=== PATIENT | female | born 1985 | race Caucasian/White ===

== ENCOUNTER 2018-09-28 14:45 | Outpatient (CLI) | payer MEDICAID, OTHER ==
[~2018-09-28] VITALS: Ht 165.1 cm; Wt 98.9 kg
[2018-09-28 15:18] VITALS: Ht 165.1 cm; Wt 98.9 kg
[2018-09-28 15:19] VITALS: BP 116/71; PULSE 71; RESP 19
--- NOTE | 2018-09-28 17:53 | TRIAGE ---
OB Triage Datetime Report Generated by CPN: 09/28/2018 17:52 Datetime: 09/28/2018 17:08 Labor Evaluation Frequency: occas Monitor Mode: External Duration (sec)2399: 60-100 Quality: Mild Pattern: Normal: <= 5 Contractions in 10 Minutes Resting Tone [place]: Relaxed Heart Rate FHR Baseline Rate: 135 Monitor Mode: External US FHR Baseline Changes: No Baseline Change Variability: Moderate 6-25 bpm Accelerations: 15X15 Decelerations: None Category: Category I Datetime: 09/28/2018 16:52 Labor Evaluation Frequency: OCCAS Monitor Mode: External Duration (sec)2399: 60-100 Quality: Mild Pattern: Normal: <= 5 Contractions in 10 Minutes Resting Tone [place]: Relaxed Heart Rate FHR Baseline Rate: 135 Monitor Mode: External US FHR Baseline Changes: No Baseline Change Variability: Moderate 6-25 bpm Accelerations: 15X15 Decelerations: None Category: Category I Datetime: 09/28/2018 15:23 Assessment Type: Triage Maternal Assessment Level of Consciousness: Fully Conscious DTR's/Clonus: DTRs 2+; No Clonus Headache: Denies Blurred Vision: No Respiratory Effort: Unlabored; Regular Rhythm; Equal Expansion Breath Sounds, Left: Clear and Equal Breath Sounds, Right: Clear and Equal Nausea/Vomiting: Denies RUQ Epigastric Pain: Denies Lower Extremities Edema: None Degree: None Upper Extremities Edema: None Degree: None Facial Edema: None Fall Risk Assessment History of Falling: (0) No Secondary Diagnosis: (0) No Ambulatory Aid: (0) Bedrest/Nurse Assist IV Therapy: (0) No Gait: (0) Normal/Bedrest/Immobile Mental Status: (0) Oriented to Own Ability Fall Score: 0 Fall Risk Score Definition: No Risk: No action required Datetime: 09/28/2018 15:22 Time of Arrival: 09/28/2018 14:36 EGA: 38.0 Arrived By: Ambulatory Arrived From: Office Chief Complaint: leaking Movement: Present Contractions: Denies/Absent Rupture of Membranes: Denies Vaginal Bleeding: None Vaginal Discharge: Denies Recent Sexual Intercouse: Denies Abdominal Trauma: Not Applicable Patient Complaints: Other Time Provider Notified: 09/28/2018 17:02 Provider Notified: dr avelar Initial Plan: nst bpp efw ua and rom + Labor Evaluation Frequency: occas Monitor Mode: External Duration (sec)2399: 60-80 Quality: Mild Pattern: Normal: <= 5 Contractions in 10 Minutes Resting Tone [place]: Relaxed Heart Rate FHR Baseline Rate: 145 Monitor Mode: External US Variability: Moderate 6-25 bpm Accelerations: 15X15 Decelerations: None Category: Category I Datetime: 09/28/2018 15:07 Vaginal Exam Dilatation (cms): 0.0 Effacement (%): 0 Station: -3 Exam By: Brian RODRIGUEZ
--- NOTE | 2018-09-28 18:13 | PREOPHP ---
DATE OF ADMISSION: 09/28/2018 HISTORY OF PRESENT ILLNESS: This is a 33-year-old lady, 2, para 1, EDC 10/12/2018 and 38 wee ks , admitted for observation to rule out ruptured bag of water. The patient has a question that she was having some leaking since Wednesday, Sundays and none today. So she was admitted for obs ervation, but she did not have any contractions. PAST PERSONAL HISTORY: No history of diabetes, TB, asthma. ALLERGIES: NO ALLERGIES. SOCIAL HISTORY: The patient does not smoke. She does not drink. MEDICATIONS: She does not take any drugs except her iron and vitamins. GYNECOLOGIC HISTORY: She had menarche at the age of 13, every 28 days interval, 3 to 4 days duration , and moderate in amount. FAMILY HISTORY: Noncontributory. OBSTETRIC HISTORY: She is 2, para 1. Her first delivery was 12 years ago. Baby weighed 5 p ounds 8 ounces, normal delivery. REVIEW OF SYSTEMS: CARDIOVASCULAR: No chest pains. RESPIRATORY: No cough. GASTROINTESTINAL: No diarrhea, no vomiting. GENITOURINARY: No dysuria. PHYSICAL EXAMINATION: GENERAL: Reveals a conscious, coherent lady and in no acute distress. VITAL SIGNS: Her blood pressure 120/80, pulse rate 80 per minute, respirations 16 per minute. BREASTS, HEART AND LUNGS: Within normal limits. ABDOMEN: Soft, fundic height 36 cm. heart tones 140 per minute. PELVIC: Done by me revealed the cervix to be closed, station floating in cephalic presentation with no fluid coming out from the cervix and the glove was noted to be dry. EXTREMITIES: No calf tenderness. ASSESSMENT: A 38 weeks intrauterine , rule out ruptured bag of water. ROM plus was negativ e. The AKIKO was done and it was 12.2 and a BPP was normal. WBC was 10.4. The plans were explained t o the patient, asked to go home and to come back if she sees any more discharge, or if she has any pr oblem. She was discharged home in good and stable condition on general diet and activity was restric bipin. She was counseled. She was instructed. FINAL DIAGNOSIS: A 38 weeks intrauterine . No leaking bag of water. Dictated By: KATE BARBOSA/KARLOS Conf#: [id number] [facility]#: [id number]
== END 2018-09-28 17:41 | disposition home or self-care (01) ==
LOC: OBT 14:45 → L-D 14:47 → OBT 17:41
PROVIDERS: ATTEND Obstetrics & Gynecology
DX: O42.92 Full-term premature rupture of membranes, unspecified as to length of time between rupture and onset of labor (principal); Z3A.38 38 weeks gestation of pregnancy
CPT/HCPCS: 76815; 76818; 81001; 84112; 85025; Z7500; G0463

== ENCOUNTER 2018-10-01 03:14 | Inpatient (IN) | payer OTHER ==
[~2018-10-01] VITALS: Ht 165.1 cm; Wt 98.1 kg
[2018-10-01 03:28] VITALS: BP 128/82; PULSE 77; RESP 18
[2018-10-01] MEDS ORDERED: LACTATED RINGER'S 1,000 ML IV PRN (03:55)
[2018-10-01] MEDS ORDERED: PREN-19 PO (03:55)
[2018-10-01] MEDS ORDERED: LIDOCAINE 1% (MPF) 30 ML INJ INJ PRN (04:00)
[2018-10-01] MEDS ORDERED: OXYTOCIN 30 UNITS/LR 500 ML IV PRN ×2 (04:00→18:00)
[2018-10-01] MEDS ORDERED: IBUPROFEN 600 MG TAB PO PRN (04:00)
[2018-10-01] MEDS ORDERED: METHYLERGONOVINE 0.2 MG INJ IM PRN ×2 (04:00→18:00)
[2018-10-01] MEDS ORDERED: CARBOPROST 250 MCG INJ IM PRN ×2 (04:00→18:00)
[2018-10-01] MEDS ORDERED: MISOPROSTOL 200 MCG TAB PR PRN ×2 (04:00→18:00)
[2018-10-01] MEDS ORDERED: BUTORPHANOL 2 MG INJ IV PRN (04:00)
[2018-10-01] MEDS ORDERED: OXYTOCIN 30 UNITS/LR 500 ML IV SCH ×3 (04:00→06:30)
[2018-10-01] MEDS ORDERED: MINERAL OIL LIGHT 10 ML VIAL TOP ONE (05:00)
--- NOTE | 2018-10-01 05:11 | TRIAGE ---
OB Triage Datetime Report Generated by CPN: 10/01/2018 05:11 Datetime: 10/01/2018 05:04 Assessment Type: Admission Assessment Pain Assessment Pain Scale: 2 Pain Presence: Intermittent Pain Type: Cramping Pain Location: Abdomen; Perineum Pain Goal: 7 Membrane Status: Ruptured Membranes Ruptured Date/Time: 10/01/2018 02:40 Membranes Rupture Method: Spontaneous Amniotic Fluid Color: Clear Amniotic Fluid Amount: Moderate Amniotic Fluid Odor: None Datetime: 10/01/2018 05:02 Time of Arrival: 10/01/2018 04:45 EGA: 38.3 Arrived By: Ambulatory Arrived From: Home Datetime: 10/01/2018 03:39 Time of Arrival: 10/01/2018 03:08 EGA: 38.3 Arrived By: Wheelchair Arrived From: Home Chief Complaint: c/o lg amt water@ 0240 and ocaas mild ucs Movement: Decreased Contractions: Occasional Time Contractions Began: 10/01/2018 02:40 Rupture of Membranes: Ruptured Vaginal Bleeding: None Vaginal Discharge: Present Recent Sexual Intercouse: Denies Abdominal Trauma: Not Applicable Patient Complaints: Cramping Time Provider Notified: 10/01/2018 03:54 Provider Notified: Dr Fagan Initial Plan: EFM,SVE Datetime: 10/01/2018 03:38 Labor Evaluation Frequency: 3-8 Monitor Mode: External Duration (sec)2399: 60 Quality: Mild Pattern: Normal: <= 5 Contractions in 10 Minutes Resting Tone [place]: Relaxed Heart Rate FHR Baseline Rate: 135 Monitor Mode: External US FHR Baseline Changes: No Baseline Change Variability: Moderate 6-25 bpm Accelerations: None Decelerations: None Category: Category I Vaginal Exam Dilatation (cms): 0.5 Effacement (%): 30 Station: -2 Exam By: Jennie Singleton Membrane Status: Ruptured Membranes Rupture Method: Spontaneous Amniotic Fluid Color: Clear Amniotic Fluid Amount: Small Amniotic Fluid Odor: Normal Vaginal Bleeding: None Pool: Positive Nitrazine: Positive Cervix, Consistency: Soft Cervix, Position: Posterior Datetime: 10/01/2018 03:21 Stage of : OB Triage Maternal Assessment Level of Consciousness: Fully Conscious Headache: Denies Blurred Vision: No Nausea/Vomiting: Denies RUQ Epigastric Pain: Denies Facial Edema: None Monitor Mode: External Resting Tone [place]: Relaxed Heart Rate FHR Baseline Rate: 140 Monitor Mode: External US Pain Assessment Pain Scale: 1 Pain Presence: Intermittent Pain Type: Cramping Pain Location: Abdomen Datetime: 09/28/2018 15:23 Fall Risk Assessment Fall Score: 0 Fall Risk Score Definition: No Risk: No action required Datetime: 09/28/2018 15:22 EGA: 38.0
[2018-10-01] MEDS: LACTATED RINGER'S 1,000 ML IV SCH ×2 (06:07→13:44)
[2018-10-01] MEDS: CLINDAMYCIN 900 MG/D5W (PMX) 50 ML IVPB SCH ×2 (06:10→13:43)
--- NOTE | 2018-10-01 11:58 | PREOPHP ---
DATE OF ADMISSION: 10/01/2018 10/01/2018 HISTORY OF PRESENT ILLNESS: This is a 33-year-old lady, 2, para 1, EDC is 10/12/2018, seen a t 38 and 3/7 weeks , admitted to labor and delivery area because of contractions that started about a few hours prior to admission. She claims that she spontaneously ruptured her bag of water w ith a lot of fluid that came out at 2:30 a.m. on 10/01/2018, followed by moderate contractions. She had care in my [place] office and the care was uneventful. PAST PERSONAL HISTORY: No history of diabetes, TB, or asthma. ALLERGIES: NO ALLERGIES. SOCIAL HISTORY: Patient does not smoke. She does not drink. MEDICATIONS: She does not take any drugs except her iron and vitamins. GYNECOLOGICAL HISTORY: She had menarche at the age 13 and every 28 days interval, 3 to 4 days durati on, and moderate. OBSTETRICAL HISTORY: Noncontributory. PHYSICAL EXAMINATION: She is a 2, para 1, her first delivery date could not be remembered. BREASTS, HEART AND LUNGS: Within normal limits. ABDOMEN: Soft, no organomegaly. Fundic height 38 cm. heart tones 140 per minute. PELVIC EXAM: Done revealed the cervix to be 1 to 2 cm dilated, station -2, in cephalic presentation with no fluid coming out of it. Adnexal were negative for masses. RECTAL: Confirmed the pelvic findings. EXTREMITIES: No pedal edema. The patient's plan was to be observed for aggressive labor. The patient received one dose of betamet hasone and she progressed well. The patient also received an epidural. The plans were explained to the patient. Estimated weight by ultrasound is 7-11 and the plans were explained to the patien t as to move forward with vaginal delivery. The risks, benefits and alternatives to vaginal delivery and . Risks of were explained. The patient will decide with her and melanie n the further opinion. Dictated By: KATE BARBOSA/KARLOS Conf#: [id number] [facility]#: [id number]
[2018-10-01] MEDS: BUTORPHANOL 2 MG INJ IV PRN ×2 (12:12→15:04)
--- NOTE | 2018-10-01 17:26 | LDN ---
Date/Time of Note Date/Time of Note DATE: 10/01/18 TIME: 17:21 Delivery Summary Weeks of Gestation 38 weeks and 3 days Placenta Delivered: Spontaneously Meconium: none Episiotomy: No Laceration repair: Second degree perineal laceration repaired with 3-0 Vicryl. Anesthesia type: Local Estimated blood loss: 300 Sponge & Needle done & correct: Yes All needle counts correct: Yes Any foreign bodies felt in the: No Delivery Information Sex Infant Sex: male Apgars 1 Minute: 8 5 Minute: 9 Suctioning Nose & mouth suctioned at francia: No Delee suction performed: No Umbilical Cord Umbilical cord with: 3 Vessels Cord presentations: nuchal cord Nuchal cord present X: 1 Cord Blood was obtained: Yes Mother & Baby Disposition Disposition Mom & Baby to Maternity; Good: Yes MELVIN OLSEN MD October 01, 2018 17:26
[2018-10-01] MEDS: LACTATED RINGER'S 1,000 ML IV* SCH ×2 (17:31→21:17)
[2018-10-01] MEDS: IBUPROFEN 600 MG TAB PO SCH ×2 (17:55→23:38)
[2018-10-01 18:00] VITALS: BP 121/62; PULSE 69; RESP 18
[2018-10-01] MEDS ORDERED: HYDROCODONE/APAP (5/325) TAB PO PRN (18:00)
[2018-10-01] MEDS ORDERED: ACETAMINOPHEN 325 MG TAB PO PRN (18:00)
[2018-10-01] MEDS ORDERED: DIBUCAINE 1% 30 GM OINT TOP PRN (18:00)
[2018-10-01] MEDS ORDERED: WITCH HAZEL/GLYCERIN PAD PR PRN (18:00)
[2018-10-01] MEDS ORDERED: BENZOCAINE 20% 56 ML SPRAY TOP PRN (18:00)
[2018-10-01 19:50] VITALS: BP 121/61; PULSE 72; RESP 18
[2018-10-01] MEDS: SENNA/DOCUSATE NA (8.6MG/50MG) TAB PO SCH (21:13)
[2018-10-01 23:45] VITALS: BP 129/69; PULSE 78; RESP 19
[2018-10-02 03:45] VITALS: BP 108/71; PULSE 76; RESP 18
[2018-10-02] MEDS: IBUPROFEN 600 MG TAB PO SCH ×4 (05:42→23:43)
[2018-10-02 07:50] VITALS: BP 101/72; PULSE 79; RESP 18
[2018-10-02] MEDS: SENNA/DOCUSATE NA (8.6MG/50MG) TAB PO SCH ×2 (09:41→21:53)
[2018-10-02 15:45] VITALS: BP 113/81; PULSE 81; RESP 18
[2018-10-02 19:55] VITALS: BP 108/67; PULSE 72; RESP 19
[2018-10-03 04:00] VITALS: BP 110/63; PULSE 65; RESP 18
[2018-10-03] MEDS: IBUPROFEN 600 MG TAB PO SCH ×2 (05:53→12:19)
[2018-10-03 08:05] VITALS: BP 110/77; PULSE 67; RESP 18
[2018-10-03] MEDS ORDERED: DIPHTH/TET/ACEL PERTUSS (ADULT) 0.5 ML VIAL IM* ONE (09:00)
[2018-10-03] MEDS: SENNA/DOCUSATE NA (8.6MG/50MG) TAB PO SCH (09:22)
[2018-10-03 16:00] VITALS: BP 112/70; PULSE 75; RESP 20
--- NOTE | 2018-10-03 16:28 | PN ---
Date/Time of Note Date/Time of Note DATE: 10/02/18 TIME: 16:27 Assessment/Plan VTE Prophylaxis Risk score (from Nsg)>0 risk: 1 SCD applied (from Nsg): No SCD contraindicated: low risk/ambulating Pharmacological prophylaxis: NA/contraindicated Pharm contraindication: low risk/ambulating Lines/Catheters IV Catheter Type (from Nrsg): Peripheral IV Assessment/Plan Assessment/Plan POST DAY 1 HOME TOMORROW RETURN TO CLINIC IN 2 WEEKS CONTINUE WITH VITAMINS OD AND FERROUS SULFATE PO TID DIET ADVISED COUNSELED INSTRUCTED CALL OFFICE IF THERE IS ANY PROBLEMS OR CONCERN Result Diagram: 10/02/18 0750 Results 24hrs Laboratory Tests Test 10/03/18 07:03 Lab Scanned Report REFERENCE LAB Subjective 24 Hr Interval Summary Free Text/Dictation FEELS GOOD, GOOD URINE OUTPUT, GOOD BOWEL MOVEMENT Exam/Review of Systems Exam Vitals Vital Signs Date Temp Pulse Resp B/P (MAP) Pulse Ox O2 O2 Flow FiO2 Time Delivery Rate 10/03/18 98.4 67 18 110/77 Room Air 08:05 (88) Exam VITAL SIGNS STABLE: YES AFEBRILE: YES BREAST NOT ENGORGED, NON-TENDER, NO APPRECIABLE MASS: YES LUNGS CLEAR, NO RALES, WHEEZES, RHONCHI: YES SINUS RHYTHM WITHOUT MURMUR: YES ABDOMEN: NON-TENDER FUNDUS: BELOW UMBILICUS BOWEL SOUNDS: PRESENT UTERUS: FIRM PERINEAL TEAR HEALING WELL [place]: LIGHT DEEP TENDON REFLEXES: 0 EXTREMITIES: NO CALF TENDERNESS Results Results 24hrs Laboratory Tests Test 10/03/18 07:03 Lab Scanned Report REFERENCE LAB Medications Medication Current Medications Ibuprofen (Motrin) 600 mg Q6 PO Last administered on 10/03/18at 12:19; Admin Dose 600 MG; Start 10/01/18 at 18:00 Acetaminophen (Tylenol Tab) 650 mg Q4H PRN PO .PAIN 1-5; Start 10/01/18 at 18:00 Acetaminophen/ Hydrocodone Bitart ([place] (5/325)) 1 tab Q4H PRN PO .PAIN 1-5; Start 10/01/18 at 18:00 Senna/Docusate Sodium (Senokot-S) 1 tab BID PO Last administered on 10/03/18at 09:22; Admin Dose 1 TAB; Start 10/01/18 at 21:00 [place] Nicol/ Glycerin (Tucks Pads) 1 pad BEDSIDE MEDICATION PRN MS .HEMORRHOID/EPISIOTOMY PAIN Last administered on 10/01/18at 17:54; Admin Dose 40 PAD; Start 10/01/18 at 18:00 Benzocaine (Dermoplast [place]) 1 spray BEDSIDE MEDICATION PRN TOP .HEMMORHOID/EPISIOTOMY PAIN Last administered on 10/01/18at 17:54; Admin Dose 56 SPRAY; Start 10/01/18 at 18:00 Dibucaine (Nupercainal) 1 applic BEDSIDE MEDICATION PRN TOP .HEMMORHOID/EPISIOTOMY; Start 10/01/18 at 18:00 Oxytocin/Lactated Ringer's 500 ml @ 0 mls/hr ONCE PRN IV .VAGINAL BLEEDING; Start 10/01/18 at 18:00 Methylergonovine Maleate (Methergine) 0.2 mg ONCE PRN IM .VAGINAL BLEEDING; Start 10/01/18 at 18:00 Carboprost Tromethamine (Hemabate) 250 mcg ONCE PRN IM .VAGINAL BLEEDING; Start 10/01/18 at 18:00 Misoprostol (Cytotec) 1,000 mcg ONCE PRN MS .VAGINAL BLEEDING; Start 10/01/18 at 18:00 KATE PEREA MD October 03, 2018 16:28
--- NOTE | 2018-10-04 16:59 | DELSUM ---
Delivery Summary A-C Datetime Report Generated by CPN: 10/04/2018 16:59 DELIVERY PERSONNEL Rehanger: Collin, Flory MATERNAL INFORMATION Delivery Anesthesia: Local Delivery QBL (ml): 300 Placenta Cultured: No Maternal Complications: None LABOR SUMMARY EDC: 10/12/2018 00:00 No. Babies in Womb: 1 Attempted: No Labor Anesthesia: IV Sedation LABOR INFORMATION Reason for Induction: Not Applicable Onset of Labor: 10/01/2018 02:40 Complete Dilatation: 10/01/2018 15:35 Oxytocin: Augmentation Group B Beta Strep: Positive Antibiotics # of Doses: 2 Antibiotics Time of Last Dose: 10/01/2018 14:00 Steroids Given: None Reason Steroids Not Administered: Not Applicable MEMBRANES Membranes Rupture Method: Spontaneous Rupture of Membranes: 10/01/2018 02:40 Length of Rupture (hr): 12.95 Amniotic Fluid Color: Clear Amniotic Fluid Amount: Moderate Amniotic Fluid Odor: None STAGES OF LABOR Stage 1 hr: 12 Stage 1 min: 55 Stage 2 hr: 0 Stage 2 min: 2 Stage 3 hr: 0 Stage 3 min: 3 Total Time in Labor hr: 13 Total Time in Labor min: 0 VAGINAL DELIVERY Episiotomy: None Laceration Extension: Second Degree Laceration Type: Perineal Laceration Repair: Yes Initial Vag Sponge Count: 10 Final Vag Sponge Count: 10 Initial Vag Sharps Count: 1 Final Vag Sharps Count: 2 Sponge Count Correct: Yes Sharps Count Correct: Yes BABY A INFORMATION Infant Delivery Date/Time: 10/01/2018 15:37 Method of Delivery: Vaginal Born in Route : No : Successful Forceps: N/A Vacuum Extraction: N/A Shoulder Dystocia : N/A SHOULDER DYSTOCIA BABY A Delivery Date/Time: 10/01/2018 15:37 PRESENTATION/POSITION BABY A Presentation: Cephalic Cephalic Presentation: Vertex Breech Presentation: N/A PLACENTA INFORMATION BABY A Placenta Delivery Time : 10/01/2018 15:40 (Annotations: Data stored by [facility] on behalf of user) Placenta Method of Delivery: Spontaneous Placenta Status: Delivered SCORES BABY A Heart Rate 1 min: >100 bpm Resp Effort 1 min: Good Cry Reflex Irritability 1 min: Cough/Sneeze/Pulls Away Muscle Tone 1 min: Active Motion Color 1 min: Blue/Pale Resuscitation Effort 1 min: Tactile Stimulation SCORE 1 MIN: 8 Heart Rate 5 min: >100 bpm Resp Effort 5 min: Good Cry Reflex Irritability 5 min: Cough/Sneeze/Pulls Away Muscle Tone 5 min: Active Motion Color 5 min: Body [place], Extremit Blue Resuscitation Effort 5 min: Tactile Stimulation SCORE 5 MIN: 9 INFORMATION BABY A Gestational Age at Delivery: 38.3 Gestational Status: Early Term- 37- 38.6 Weeks Outcome : Liveborn Condition : Stable Sex: Male IDENTIFICATION/MEDS BABY A ID Band Number: [id number] ID Band Location: Right Leg; Left Leg Sensor Applied: Yes Sensor Number: [id number] Sensor Location : Cord Clamp Vitamin K Given : Not Given Erythromycin Given: Not Given WEIGHT/LENGTH BABY A Infant Birthweight (gm): 3340 Infant Weight (lb): 7 Weight (oz): 6 Length (in): 20.00 Infant Length (cm): 50.80 CORD INFORMATION BABY A No. Cord Vessels: 3 Nuchal Cord : Around Neck x1, Loose Cord Blood Taken: Yes Infant Suction: Mouth; Nose ASSESSMENT BABY A Infant Complications: None Physical Findings at Delivery: Bruising Physical Findings- Other: facial bruising. Infant Respirations: Appears Normal Lead Application Architect/ALS Called : No Transferred To: Remains with Mother
== END 2018-10-03 16:58 | disposition home or self-care (01) | DRG 807 ==
LOC: OBT 03:14 → L-D 03:15 → OBT 03:54 → L-D 04:26 → PP1 17:48
PROVIDERS: ADMIT Obstetrics & Gynecology; ATTEND Obstetrics & Gynecology
PROC: 10E0XZZ Delivery of Products of Conception, External Approach (ICD-10-PCS; principal; 2018-10-01)
PROC: 0KQM0ZZ Repair Perineum Muscle, Open Approach (ICD-10-PCS; 2018-10-01)
DX: O69.81X0 Labor and delivery complicated by cord around neck, without compression, not applicable or unspecified (principal); Z37.0 Single live birth; O70.1 Second degree perineal laceration during delivery; Z3A.38 38 weeks gestation of pregnancy
CPT/HCPCS: 76818; 85025; 85610; 85730; 86592; 86850; 86900; 86901; G0463; J0595; J2590; J7120